=== PATIENT | male | born 1985 | race African-American/Black ===

== ENCOUNTER 2017-04-15 13:24 | Emergency (ER) | payer SELFPAY ==
[~2017-04-15] VITALS: Ht 170.2 cm; Wt 113.4 kg
[2017-04-15] MEDS ORDERED: IV NORMAL SALINE 1000ML BAG 1,000 ML IV ONE (14:45)
[2017-04-15 14:51] LABS: POTASSIUM ISTAT 4.2 mmol/L (3.5-5.0)
[2017-04-15 15:01] LABS: BILIRUBIN,URINE NEGATIVE (NEG); GLUCOSE,URINE >=1000 mg/dL (NEG); NITRITE,URINE NEGATIVE (NEG); PROTEIN,URINE 30 mg/dL (NEG-TRACE)
[2017-04-15 15:16] LABS: BACTERIA,URINE FEW /HPF (0-FEW); SQUAMOUS EPITHELIAL CELL,UR OCC /LPF; WBC,URINE OCC /HPF (0-4)
--- NOTE | 2017-04-15 16:09 | PHYS DOC ---
Past Medical History Past Medical History: Diabetes-Type I, High Cholesterol, Hypertension, Hyperthyroid Past Surgical History: No Surgical History Alcohol Use: None Drug Use: None Adult General Chief Complaint Chief Complaint: BLOOD SUGAR PROBLEM HPI HPI Patient is a 32 year old male who presents with one-week history of general malaise frequent urination is a known type I diabetic not taking any insulin for the past 6 weeks and not taking his thyroid medication. He was recently released from skilled nursing and has not gotten any of his meds filled or seen another doctor. Review of Systems Review of Systems Constitutional: Denies fever or chills [] Eyes: Denies change in visual acuity, redness, or eye pain [] HENT: Denies nasal congestion or sore throat [] Respiratory: Denies cough or shortness of breath [] Cardiovascular: No additional information not addressed in HPI [] GI: Denies abdominal pain, nausea, vomiting, bloody stools or diarrhea [] : Denies dysuria or hematuria [] Musculoskeletal: Denies back pain or joint pain [] Integument: Denies rash or skin lesions [] Neurologic: Denies headache, focal weakness or sensory changes [] Endocrine: Denies polyuria or polydipsia [] All other systems were reviewed and found to be within normal limits, except as documented in this note. Current Medications Current Medications Current Medications Medications (Trade) Dose Ordered Sig/Jessica Start Time Stop Time Status Last Admin Dose Admin Sodium Chloride 1,000 ml @ 1,000 mls/hr 1X ONCE 04/15/17 14:45 04/15/17 15:44 DC 04/15/17 14:57 1,000 MLS/HR Allergies Allergies Allergies Coded Allergies Type Severity Reaction Last Updated Verified No Known Drug Allergies 11/06/13 No Physical Exam Physical Exam Constitutional: Well developed, well nourished, no acute distress, non-toxic appearance. [] HENT: Normocephalic, atraumatic, bilateral external ears normal, oropharynx moist, no oral exudates, nose normal. [] Eyes: PERRLA, EOMI, conjunctiva normal, no discharge. [] Neck: Normal range of motion, no tenderness, supple, no stridor. [] Cardiovascular:Heart rate regular rhythm, no murmur [] Lungs & Thorax: Bilateral breath sounds clear to auscultation [] Abdomen: Bowel sounds normal, soft, no tenderness, no masses, no pulsatile masses. [] Skin: Warm, dry, no erythema, no rash. [] Back: No tenderness, no CVA tenderness. [] Extremities: No tenderness, no cyanosis, no clubbing, ROM intact, no edema. [] Neurologic: Alert and oriented X 3, normal motor function, normal sensory function, no focal deficits noted. [] Psychologic: Affect normal, judgement normal, mood normal. [] Current Patient Data Vital Signs Vital Signs Date Time Temp Pulse Resp B/P (MAP) Pulse Ox O2 Delivery O2 Flow Rate FiO2 04/15/17 16:56 90 16 125/77 (93) 97 Room Air 04/15/17 14:09 98.6 98.6 Lab Values Laboratory Tests Test 04/15/17 14:04 04/15/17 14:43 04/15/17 14:50 04/15/17 14:51 Glucose (Fingerstick) 322 mg/dL (70-99) H POC Hemoglobin 13.9 g/dL (14-18) L POC Hematocrit 41 % (37-52) POC Sodium 138 mmol/L (135-145) POC Potassium 4.2 mmol/L (3.5-5.0) POC Chloride 97 mmol/L (98-110) L POC Total CO2 31 mmol/L (23-32) Anion Gap 15 mmol/L (6-14) H POC Blood Urea Nitrogen 9 mg/dL (8-26) POC Creatinine 1.4 mg/dL (0.5-1.4) Glucose Level 293 mg/dL (70-99) H POC Ionized Calcium ([place]) 1.21 mmol/L (1.13-1.32) Thyroid Stimulating Hormone (TSH) 0.570 uIU/mL (0.358-3.74) Urine Collection Type Unknown Urine Color Yellow Urine Clarity Clear Urine pH 7.0 Urine Specific [place] >=1.030 Urine Protein 30 mg/dL (NEG-TRACE) Urine Glucose (UA) >=1000 mg/dL (NEG) Urine Ketones (Stick) Negative mg/dL (NEG) Urine Blood Negative (NEG) Urine Nitrite Negative (NEG) Urine Bilirubin Negative (NEG) Urine Urobilinogen Dipstick 2.0 mg/dL (0.2 mg/dL) Urine Leukocyte Esterase Negative (NEG) Urine RBC 1-2 /HPF (0-2) Urine WBC Occ /HPF (0-4) Urine Squamous Epithelial Cells Occ /LPF Urine Bacteria Few /HPF (0-FEW) Laboratory Tests 04/15/17 14:43 EKG EKG [] Radiology/Procedures Radiology/Procedures [] Course & Med Decision Making Course & Med Decision Making Pertinent Labs and Imaging studies reviewed. (See chart for details) Hyperglycemia will need outpatient treatment but there is no indication for DKA or admission. Social work will be consult. [] Dragon Disclaimer Dragon Disclaimer This electronic medical record was generated, in whole or in part, using a voice recognition dictation system. Departure Departure Impression: Primary Impression: Hyperglycemia Additional Impression: Uncontrolled diabetes mellitus Disposition: HOME, SELF-CARE Condition: IMPROVED Referrals: NO PCP (PCP) Problem Qualifiers AUSTEN CASTELLON MD Apr 15, 2017 16:09
[2017-04-15 16:56] VITALS: BP 125/77
== END 2017-04-15 17:46 | disposition home or self-care (01) ==
LOC: ER 13:24
DX: E10.65 Type 1 diabetes mellitus with hyperglycemia (principal); E78.00 Pure hypercholesterolemia, unspecified; I10 Essential (primary) hypertension; E05.90 Thyrotoxicosis, unspecified without thyrotoxic crisis or storm; Z79.4 Long term (current) use of insulin
CPT/HCPCS: 36415; 80047; 81001; 82962; 84443; 96360; 99284; J7030

== ENCOUNTER 2017-08-18 07:43 | Emergency (ER) | payer SELFPAY ==
[2017-08-18 08:30] LABS: POC GLUCOSE 407 mg/dL (70-99)
[2017-08-18 08:43] LABS: ADD MAN DIFF? NO
[2017-08-18] MEDS: IV NORMAL SALINE 1000ML BAG 1,000 ML IV (08:47)
[2017-08-18 08:53] LABS: BASO % 1 % (0-3); BILIRUBIN,URINE NEGATIVE (NEG); CLARITY,URINE CLEAR; COLOR,URINE YELLOW; EOS # 0.1 x10^3/uL (0.0-0.7); EOS % 2 % (0-3); GLUCOSE,URINE >=1000 mg/dL (NEG); HEMATOCRIT 43.5 % (39.0-53.0); HEMOGLOBIN 14.4 g/dL (13.0-17.5); LYMPH # 1.8 x10^3/uL (1.0-4.8); LYMPH % 37 % (24-48); MEAN CORPUSCULAR HEMOGLOBIN 29 pg (25-35); MEAN CORPUSCULAR HGB CONC 33 g/dL (31-37); MEAN CORPUSCULAR VOLUME 89 fL (79-100); MONO # 0.5 x10^3/uL (0.0-1.1); MONO % 11 % (0-9); NEUT # 2.5 x10^3uL (1.8-7.7); NEUT % 49 % (31-73); NITRITE,URINE NEGATIVE (NEG); PLATELET COUNT 177 x10^3/uL (140-400); PROTEIN,URINE 30 mg/dL (NEG-TRACE); RED BLOOD COUNT 4.91 x10^6/uL (4.30-5.70); RED CELL DISTRIBUTION WIDTH 14.4 % (11.5-14.5); UROBILINOGEN,URINE 0.2 mg/dL (0.2 mg/dL)
[2017-08-18 08:57] LABS: AMPHETAMINE/METHAMPHETAMINE POS (NEG); BARBITURATES NEG (NEG); BENZODIAZEPINES NEG (NEG); CANNABINOIDS POS (NEG); COCAINE NEG (NEG); ETHANOL, URINE POS (NEG); METHADONE NEG (NEG); OPIATES NEG (NEG); PHENCYCLIDINE NEG (NEG)
[2017-08-18 09:01] LABS: ANION GAP 12 (6-14); BLOOD UREA NITROGEN 11 mg/dL (8-26); BUN/CREATININE RATIO 9 (6-20); CALCIUM 9.1 mg/dL (8.5-10.1); CARBON DIOXIDE 25 mmol/L (21-32); CHLORIDE 97 mmol/L (98-107); CREATININE 1.2 mg/dL (0.7-1.3); GFR 84.4; GLUCOSE 421 mg/dL (70-99); POTASSIUM 4.4 mmol/L (3.5-5.1); SODIUM 134 mmol/L (136-145)
[2017-08-18 09:03] LABS: BACTERIA,URINE 0 /HPF (0-FEW); RBC,URINE 0 /HPF (0-2); SQUAMOUS EPITHELIAL CELL,UR OCC /LPF; WBC,URINE 0 /HPF (0-4)
[2017-08-18 09:08] LABS: ACETAMIN < 2.0 mcg/ml (10-30); SALIC < 2.8 mg/dL (2.8-20.0)
[2017-08-18 09:09] LABS: LACTIC ACID 1.2 mmol/L (0.4-2.0)
[2017-08-18 09:16] LABS: ALBUMIN 3.4 g/dL (3.4-5.0); ALBUMIN/GLOBULIN RATIO 0.8 (1.0-1.7); ALK PHOS 88 U/L (46-116); ALT (SGPT) 22 U/L (16-63); AST (SGOT) 21 U/L (15-37); TOTAL BILIRUBIN 0.5 mg/dL (0.2-1.0); TOTAL PROTEIN 7.8 g/dL (6.4-8.2)
[2017-08-18 09:29] LABS: THYROID STIM HORMONE (TSH) 1.357 uIU/mL (0.358-3.74)
[2017-08-18 09:36] LABS: ETHANOL < 10 mg/dL (0-10)
[2017-08-18 10:51] LABS: POC GLUCOSE 296 mg/dL (70-99)
[2017-08-18] MEDS: INSULIN ASPART 300 UNITS/3 ML INSULN.PEN SQ (11:48)
== END 2017-08-18 12:45 | disposition short-term general hospital (02) ==
LOC: ER 07:43
DX: F15.10 Other stimulant abuse, uncomplicated (principal); R45.851 Suicidal ideations; F32.9 Major depressive disorder, single episode, unspecified; E10.9 Type 1 diabetes mellitus without complications; I10 Essential (primary) hypertension; E05.90 Thyrotoxicosis, unspecified without thyrotoxic crisis or storm; G40.909 Epilepsy, unspecified, not intractable, without status epilepticus; F41.9 Anxiety disorder, unspecified; Z87.820 Personal history of traumatic brain injury; Z79.4 Long term (current) use of insulin
CPT/HCPCS: 36415; 80053; 80307; 80329; 81001; 82962; 83605; 84443; 85025; 93005; 96360; 96361; 96372; 99285-25; G0480; J1815; J7030

== ENCOUNTER 2017-08-25 13:38 | Inpatient (IN) | payer SELFPAY ==
[2017-08-25 13:57] LABS: POC GLUCOSE 237 mg/dL (70-99)
[2017-08-25 14:36] LABS: ADD MAN DIFF? NO
[2017-08-25 14:39] LABS: BASO % 1 % (0-3); EOS # 0.1 x10^3/uL (0.0-0.7); EOS % 2 % (0-3); HEMOGLOBIN 14.7 g/dL (13.0-17.5); LYMPH # 1.5 x10^3/uL (1.0-4.8); LYMPH % 27 % (24-48); MEAN CORPUSCULAR HEMOGLOBIN 29 pg (25-35); MEAN CORPUSCULAR HGB CONC 33 g/dL (31-37); MEAN CORPUSCULAR VOLUME 88 fL (79-100); MONO # 0.5 x10^3/uL (0.0-1.1); MONO % 9 % (0-9); NEUT # 3.5 x10^3uL (1.8-7.7); NEUT % 61 % (31-73); PLATELET COUNT 219 x10^3/uL (140-400); RED BLOOD COUNT 5.02 x10^6/uL (4.30-5.70); RED CELL DISTRIBUTION WIDTH 14.6 % (11.5-14.5); WHITE BLOOD COUNT 5.6 x10^3/uL (4.0-11.0)
[2017-08-25 14:49] LABS: ANION GAP 10 (6-14); BLOOD UREA NITROGEN 18 mg/dL (8-26); CALCIUM 9.5 mg/dL (8.5-10.1); CARBON DIOXIDE 28 mmol/L (21-32); CHLORIDE 97 mmol/L (98-107); CREATININE 1.2 mg/dL (0.7-1.3); GFR 84.4; GLUCOSE 216 mg/dL (70-99); POTASSIUM 4.5 mmol/L (3.5-5.1); SODIUM 135 mmol/L (136-145)
[2017-08-25 14:56] LABS: ALBUMIN 3.2 g/dL (3.4-5.0); ALK PHOS 75 U/L (46-116); ALT (SGPT) 30 U/L (16-63); AST (SGOT) 23 U/L (15-37); LIPASE 397 U/L (73-393); TOTAL BILIRUBIN 0.2 mg/dL (0.2-1.0)
[2017-08-25 14:57] LABS: DIRECT BILIRUBIN < 0.1 mg/dL (0.0-0.2)
[2017-08-25 14:59] LABS: TROPONINI 0.088 ng/mL (0.000-0.055)
[2017-08-25 15:09] LABS: BILIRUBIN,URINE NEGATIVE (NEG); COLOR,URINE YELLOW; GLUCOSE,URINE >=1000 mg/dL (NEG); NITRITE,URINE NEGATIVE (NEG); PH,URINE 7.5; PROTEIN,URINE NEGATIVE (NEG-TRACE)
[2017-08-25] MEDS ORDERED: NITROGLYCERIN SUBLINGUAL 0.4 MG BOTTLE OF 25. SL (15:15)
[2017-08-25 15:32] LABS: AMPHETAMINE/METHAMPHETAMINE NEG (NEG); BARBITURATES NEG (NEG); BENZODIAZEPINES NEG (NEG); CANNABINOIDS POS (NEG); CLARITY,URINE CLEAR; COCAINE NEG (NEG); ETHANOL, URINE NEG (NEG); METHADONE NEG (NEG); OPIATES NEG (NEG); PHENCYCLIDINE NEG (NEG)
[2017-08-25 15:33] LABS: BACTERIA,URINE 0 /HPF (0-FEW); RBC,URINE RARE /HPF (0-2); SQUAMOUS EPITHELIAL CELL,UR OCC /LPF; WBC,URINE 0 /HPF (0-4)
[2017-08-25] MEDS: ASPIRIN CHEWABLE 81 MG TABLET. PO (16:10)
[2017-08-25] MEDS: IV NORMAL SALINE 1000ML BAG 1,000 ML IV (16:11)
[2017-08-25] MEDS ORDERED: DEXTROSE 50% 25 GM / 50ML DISP.SYRIN. IV (17:45)
[2017-08-25 20:39] LABS: POC GLUCOSE 362 mg/dL (70-99)
[2017-08-25] MEDS: ATORVASTATIN CALCIUM 10 MG TABLET. PO (21:07)
[2017-08-25] MEDS: INSULIN DETEMIR 300 UNITS/3 ML INSULN.PEN. SQ (21:13)
[2017-08-26 03:11] LABS: POC GLUCOSE 240 mg/dL (70-99)
[2017-08-26 05:35] LABS: ADD MAN DIFF? NO
[2017-08-26 05:48] LABS: BASO % 1 % (0-3); EOS # 0.1 x10^3/uL (0.0-0.7); EOS % 2 % (0-3); HEMATOCRIT 42.3 % (39.0-53.0); HEMOGLOBIN 13.9 g/dL (13.0-17.5); LYMPH # 2.2 x10^3/uL (1.0-4.8); LYMPH % 41 % (24-48); MEAN CORPUSCULAR HEMOGLOBIN 29 pg (25-35); MEAN CORPUSCULAR HGB CONC 33 g/dL (31-37); MEAN CORPUSCULAR VOLUME 89 fL (79-100); MONO # 0.5 x10^3/uL (0.0-1.1); MONO % 9 % (0-9); NEUT # 2.5 x10^3uL (1.8-7.7); NEUT % 48 % (31-73); PLATELET COUNT 193 x10^3/uL (140-400); RED BLOOD COUNT 4.76 x10^6/uL (4.30-5.70); RED CELL DISTRIBUTION WIDTH 14.5 % (11.5-14.5); WHITE BLOOD COUNT 5.3 x10^3/uL (4.0-11.0)
[2017-08-26 06:12] LABS: TROPONINI 0.093 ng/mL (0.000-0.055)
[2017-08-26 06:14] LABS: ALBUMIN 2.8 g/dL (3.4-5.0); ALBUMIN/GLOBULIN RATIO 0.7 (1.0-1.7); ALK PHOS 61 U/L (46-116); ALT (SGPT) 28 U/L (16-63); ANION GAP 6 (6-14); AST (SGOT) 22 U/L (15-37); BLOOD UREA NITROGEN 15 mg/dL (8-26); BUN/CREATININE RATIO 14 (6-20); CALCIUM 8.7 mg/dL (8.5-10.1); CARBON DIOXIDE 29 mmol/L (21-32); CHLORIDE 98 mmol/L (98-107); CHOLESTEROL 172 mg/dL (0-200); CREATININE 1.1 mg/dL (0.7-1.3); GFR 93.3; GLUCOSE 256 mg/dL (70-99); HDLC 58 mg/dL (40-60); LDLC 93 mg/dL (0-100); LIPASE 304 U/L (73-393); NON-HDL CHOLESTEROL 114 mg/dL (0-129); POTASSIUM 4.5 mmol/L (3.5-5.1); SODIUM 133 mmol/L (136-145); TOTAL BILIRUBIN 0.4 mg/dL (0.2-1.0); TOTAL PROTEIN 6.7 g/dL (6.4-8.2); TRIGLYCERIDES 104 mg/dL (0-150); VLDLC 21 mg/dL (0-40)
[2017-08-26 06:15] LABS: THYROID STIM HORMONE (TSH) 1.604 uIU/mL (0.358-3.74)
[2017-08-26] MEDS: LEVOTHYROXINE 88 MCG TABLET PO (06:26)
[2017-08-26] MEDS: INSULIN ASPART 300 UNITS/3 ML INSULN.PEN SQ ×8 (07:30→17:36)
[2017-08-26 08:07] LABS: POC GLUCOSE 247 mg/dL (70-99)
[2017-08-26] MEDS: LISINOPRIL 5 MG TABLET. PO (09:00)
[2017-08-26] MEDS: hydroCHLOROthiazide 12.5 MG CAPSULE PO (09:00)
[2017-08-26 15:43] LABS: POC GLUCOSE 444 mg/dL (70-99)
[2017-08-26 17:24] LABS: POC GLUCOSE 349 mg/dL (70-99)
[2017-08-26] MEDS: FLU VACC QS2017-18 (36MOS+)/PF 0.5 ML SYRINGE. VAX IM (17:39)
== END 2017-08-26 18:25 | disposition home or self-care (01) | DRG 313 ==
LOC: ER 13:38 → 2 NORTH 15:28
PROVIDERS: Internal Medicine
DX: R07.89 Other chest pain (principal); F15.20 Other stimulant dependence, uncomplicated; E03.9 Hypothyroidism, unspecified; E10.9 Type 1 diabetes mellitus without complications; E78.00 Pure hypercholesterolemia, unspecified; E78.5 Hyperlipidemia, unspecified; E86.0 Dehydration; F12.20 Cannabis dependence, uncomplicated; F17.210 Nicotine dependence, cigarettes, uncomplicated; I10 Essential (primary) hypertension; Z79.4 Long term (current) use of insulin; Z91.19 Patient's noncompliance with other medical treatment and regimen; Z87.820 Personal history of traumatic brain injury; Z82.49 Family history of ischemic heart disease and other diseases of the circulatory system; Z23 Encounter for immunization
CPT/HCPCS: 36415; 78452; 80048; 80053; 80061; 80076; 80307; 81001; 82962; 83690; 84443; 84484; 85025; 90686; 93005; 93017; 93306; 96360; 96374; 96376; 99285-25; A9500; J1815; J7030

== ENCOUNTER 2017-08-28 18:07 | Emergency (ER) | payer SELFPAY ==
[2017-08-28 18:15] LABS: POC GLUCOSE 349 mg/dL (70-99)
[2017-08-28] MEDS ORDERED: IV NORMAL SALINE 1000ML BAG 1,000 ML IV (18:27)
[2017-08-28] MEDS ORDERED: ASPIRIN CHEWABLE 81 MG TABLET. PO (18:30)
[2017-08-28] MEDS ORDERED: 0.9 % SODIUM CHLORIDE 10 ML DISP.SYRIN. IV (18:30)
[2017-08-28 18:36] LABS: ADD MAN DIFF? NO
[2017-08-28 18:40] LABS: BASO % 1 % (0-3); EOS % 0 % (0-3); HEMATOCRIT 41.3 % (39.0-53.0); LYMPH # 1.1 x10^3/uL (1.0-4.8); LYMPH % 17 % (24-48); MEAN CORPUSCULAR HEMOGLOBIN 30 pg (25-35); MEAN CORPUSCULAR HGB CONC 34 g/dL (31-37); MEAN CORPUSCULAR VOLUME 89 fL (79-100); MONO # 0.4 x10^3/uL (0.0-1.1); MONO % 7 % (0-9); NEUT # 4.9 x10^3uL (1.8-7.7); NEUT % 75 % (31-73); PLATELET COUNT 195 x10^3/uL (140-400); RED BLOOD COUNT 4.65 x10^6/uL (4.30-5.70); RED CELL DISTRIBUTION WIDTH 14.2 % (11.5-14.5); WHITE BLOOD COUNT 6.5 x10^3/uL (4.0-11.0)
[2017-08-28 18:49] LABS: ANION GAP 9 (6-14); BLOOD UREA NITROGEN 16 mg/dL (8-26); CALCIUM 9.3 mg/dL (8.5-10.1); CARBON DIOXIDE 28 mmol/L (21-32); CHLORIDE 100 mmol/L (98-107); CREATININE 1.4 mg/dL (0.7-1.3); GFR 70.6; GLUCOSE 375 mg/dL (70-99); POTASSIUM 4.8 mmol/L (3.5-5.1); SODIUM 137 mmol/L (136-145)
[2017-08-28 18:55] LABS: ALBUMIN 3.5 g/dL (3.4-5.0); ALK PHOS 81 U/L (46-116); ALT (SGPT) 26 U/L (16-63); AST (SGOT) 19 U/L (15-37); DIRECT BILIRUBIN < 0.1 mg/dL (0.0-0.2); LIPASE 227 U/L (73-393); MAGNESIUM 1.8 mg/dL (1.8-2.4); TOTAL BILIRUBIN 0.2 mg/dL (0.2-1.0); TOTAL PROTEIN 7.3 g/dL (6.4-8.2)
[2017-08-28 18:59] LABS: TROPONINI 0.082 ng/mL (0.000-0.055)
[2017-08-28 19:02] LABS: THYROID STIM HORMONE (TSH) 0.629 uIU/mL (0.358-3.74)
[2017-08-28 19:04] LABS: CKMB INDEX 0.7 % (0-4); CKMB MASS 1.5 ng/mL (0.0-3.6); CREATINE KINASE 204 U/L (39-308)
[2017-08-28 19:04] LABS: NT-PRO BNP 34 pg/mL (0-124)
== END 2017-08-28 18:45 | disposition left against medical advice (07) ==
LOC: ER 18:07
DX: F12.10 Cannabis abuse, uncomplicated (principal); F15.10 Other stimulant abuse, uncomplicated; R00.0 Tachycardia, unspecified; R07.89 Other chest pain; R00.2 Palpitations; E10.9 Type 1 diabetes mellitus without complications; E03.9 Hypothyroidism, unspecified; I10 Essential (primary) hypertension; E78.00 Pure hypercholesterolemia, unspecified; F17.210 Nicotine dependence, cigarettes, uncomplicated; Z87.820 Personal history of traumatic brain injury
CPT/HCPCS: 36415; 80048; 80076; 82553; 82962; 83690; 83735; 83880; 84443; 84484; 85025; 93005; 99285-25